=== PATIENT | male | born 1970 | race Hispanic/Latino ===

== ENCOUNTER → 2018-09-02 | Outpatient (CLI) | payer BC | END | disposition home or self-care (01) | LOC: RAH 08:37 | PROVIDERS: ATTEND Psychiatry & Neurology Neurology | DX: M47.812 Spondylosis without myelopathy or radiculopathy, cervical region (principal); R35.1 Nocturia | CPT/HCPCS: 72141 ==

== ENCOUNTER → 2018-09-11 | Outpatient (CLI) | payer BC, OTHER | END | disposition home or self-care (01) | LOC: RAH 10:50 | PROVIDERS: ATTEND Psychiatry & Neurology Neurology | DX: G35 Multiple sclerosis (principal); R20.0 Anesthesia of skin | CPT/HCPCS: 70551 ==

== ENCOUNTER 2018-09-21 08:27 | Observation (INO) | payer BC ==
[~2018-09-21] VITALS: Ht 165.1 cm; Wt 94.6 kg
[2018-09-21 08:45] VITALS: BP 111/72
[2018-09-21] MEDS: PANTOPRAZOLE SODIUM 40 MG TABLET.DR PO SCH ×2 (09:00→10:30)
[2018-09-21 09:22] LABS: HEMATOCRIT 41.6 % (42-54); MEAN CORPUSCULAR HEMOGLOBIN 31.5 pg (27.0-33.0); MEAN CORPUSCULAR HGB CONC 34.4 g/dL (32.0-36.0); MEAN CORPUSCULAR VOLUME 91.5 fL (79-99); PLATELET COUNT (AUTO) 212 K/uL (130-400); RED BLOOD CELL COUNT(AUTO) 4.55 MIL/uL (4.50-6.20); RED CELL DISTRIBUTION WIDTH 13.4 % (11.0-15.5); WHITE BLOOD COUNT (AUTO) 5.3 K/uL (4.8-10.8)
[2018-09-21 09:39] LABS: INR 0.95 (0.85-1.15); PARTIAL THROMBOPLASTIN TIME 27.8 SEC (26.3-35.5)
[2018-09-21 09:40] LABS: ALBUMIN 3.5 g/dL (3.5-5.0); BILIRUBIN,TOTAL 0.7 mg/dL (0.2-1.0); CREATININE 0.9 mg/dL (0.5-1.5); POTASSIUM 3.9 mmol/L (3.5-5.1)
--- NOTE | 2018-09-21 10:13 | NUR ---
DR MONTES IN TO SEE PATIENT
[2018-09-21] MEDS ORDERED: SODIUM CHLORIDE 0.9% 1000ML 1,000 ML IV SCH (10:30)
[2018-09-21] MEDS ORDERED: METO25TA6 PO (10:47)
[2018-09-21] MEDS ORDERED: ATOR40TA69 PO (10:47)
[2018-09-21] MEDS ORDERED: VIT B-12 PO (10:47)
[2018-09-21] MEDS ORDERED: VIT1CAPS49 PO (10:47)
[2018-09-21 11:00] VITALS: BP 121/82
--- NOTE | 2018-09-21 13:00 | NUR ---
PATIENT CONSENTED FOR SPINAL TAP AND IV STARTED 20 G LEFT HAND INFUSING NS 2 100 CC/HR. ANESTHESIA RADHA PREFORMED SPINAL TAP AND 4 TUBES OF CLEAR FLUID TAKING TO LAB FOR TESTING . BINDAIDE PLACE ON SITE AND PATIENT RESTING FLAT IN BED TIMES 3-4 HOURS. AT BEDSIDE.
[2018-09-21 13:57] LABS: APPEARANCE2,CSF CLEAR (CLEAR); COLOR2,CSF COLORLESS (COLORLESS); CSF 2ND TUBE NUMBER 3
[2018-09-21 13:58] LABS: APPEARANCE,CSF CLEAR (CLEAR); CSF TUBE NUMBER TUBE NO.4
[2018-09-21 13:59] LABS: COLOR,CSF COLORLESS (COLORLESS); RED BLOOD CELL1,CSF 1 CMM (0-0); WHITE BLOOD CELL1,CSF 2 CMM (0-5)
--- NOTE | 2018-09-21 14:50 | NUR ---
DR OHARA IN TO SEE PATIENT AFTER REVIEW HIS MEDICAL RECORDS.
[2018-09-21 16:00] VITALS: BP 116/63
--- NOTE | 2018-09-21 17:20 | NUR ---
PATIENT GIVEN DISCHARGE INSTRUCTIONS AND VERBALIZED UNDERSTANDING , IV REMOVED WITH CATHETER INTACT AND SITE DRESSED. PATIENT WILL FOLLOW-UP WITH DR MONTES ON SP[INAL TAP RESULTS. TRANSPORTED VIA WHEELCHAIR TO LOBBY WITH FAMILY BY HIS SIDE NO QUESTIONS OR CONCERNS AT THIS TIME.
[2018-09-21] MEDS ORDERED: METOPROLOL TARTRATE 25 MG TAB PO SCH (21:00)
[2018-09-21] MEDS ORDERED: CYANOCOBALAMIN (VITAMIN B-12) 1,000 MCG TABLET PO SCH (21:00)
[2018-09-22] MEDS ORDERED: ENOXAPARIN SODIUM 40 MG/0.4 ML SYRINGE SQ SCH (09:00)
[2018-09-22] MEDS ORDERED: D3 PO SCH (09:00)
[2018-09-22] MEDS ORDERED: VIT A PO SCH (09:00)
[2018-09-22] MEDS ORDERED: COD LIVER OIL PO SCH (09:00)
[2018-09-22] MEDS ORDERED: ATORVASTATIN CALCIUM 40 MG TABLET PO SCH (09:00)
== END 2018-09-21 17:25 | disposition home or self-care (01) ==
LOC: EDH 08:27 → 3AH 08:28
PROVIDERS: ADMIT Internal Medicine; ATTEND Internal Medicine
DX: M48.02 Spinal stenosis, cervical region (principal); I10 Essential (primary) hypertension; E78.5 Hyperlipidemia, unspecified; Z80.52 Family history of malignant neoplasm of bladder; Z82.49 Family history of ischemic heart disease and other diseases of the circulatory system; Z83.3 Family history of diabetes mellitus; Z96.661 Presence of right artificial ankle joint; Z96.662 Presence of left artificial ankle joint; Z79.899 Other long term (current) drug therapy; Z79.01 Long term (current) use of anticoagulants
CPT/HCPCS: 36415; 80053; 85027; 85610; 85730; 89051 ×2; 99283; G0378 ×9; J7030